=== PATIENT | female | born 1940 | race Caucasian/White ===

== ENCOUNTER → 2017-03-10 | Outpatient (CLI) | payer OTHER ==
[~2017-03-10] MED LIST: ALDACTONE25 M1 PO; AMLODIPINE BES10 MG PO; AMLODIPINE5 MG PO; ASPI-COR81 M1 PO; ASPIRIN ADULT L81 M1 PO; ASPIRIN81 M1 PO; ATARAX25 MG PO; ATIVAN0.5 MG PO; AUGMENTIN 500 M1 TAB PO; BACTRIM DS 8001 TA1 PO; CAPOTEN12.5 MG PO; CAPTOPRIL50 MG PO; CATAPRES0.2 MG PO; CIPRO500 MG PO; CITALOPRAM20 MG PO; CLINDAMYCIN HC300 MG PO; COREG6.25 MG PO; COUMADIN2.5 M1 PO; COUMADIN3 M1 PO; COUMADIN5 M2 PO; COUMADIN5 MG PO; Coumadin5 MG PO; DIABETA5 MG PO; DIFLUCAN150 MG PO; FERREX 150 FORT1 CA1 PO; FORMOTEROL FUMA INH; FUROSEMIDE40 MG PO; GABAPENTIN400 MG PO; GLIPIZIDE10 MG PO; HYDR25T PO; HYDROCODONE BIT1 T11 PO; IMDUR30 MG PO; KEFLEX500 MG PO; KEPPRA500 MG PO; KLOR-CON 1010 MEQ PO; LASIX40 MG PO; LEVEMIR10 ML SC; LEVEMIR100 U/ML SG; LEVOTHYROXIN0.125 MG PO; LISINOPRIL20 MG PO; LISINOPRIL40 MG PO; LOPRESSOR50 MG PO; Lac-Hydrin 12%340 GM T; METFORMIN1000 MG PO; METOCLOPRAMIDE5 MG PO; METOPROLOL TART50 M1 PO; MINIPRESS2 M1 PO; MYCOLOG CREAM 115 GM PO; MYCOLOG CREAM 115 GM T; MYLANTA SUPREME PO; NEURONTIN400 MG PO; NIFEREX FORTE PO; NORVASC5 MG PO; NOVOLIN R100 U/ML SC; OMEPRAZOLE20 MG PO; PLAVIX75 M1 PO; PLAVIX75 MG PO; PRAZOSIN PO; PRILOSEC20 M1 PO; PT DOESN'T KNOW MEDS; SYNTHROID,LEV125 MCG PO; VANCOMYCIN HCL N1 GM IV; VENTOLIN 02.5 MG/3 M INH; VICODIN 5/500 505 MG PO; Ventolin 02.5 MG/3 M INH; Ventolin 02.5 MG/3 M NEB; ZESTRIL20 MG PO; ZOCOR40 MG PO; Zofran4 MG PO
[2017-03-10 09:11] LABS: BASO % 0.3 % (0.0-1.0); EOS # 0.5 10*3/uL (0.0-0.4); EOS % 4.4 % (1.0-4.0); HEMATOCRIT 33.1 % (37.0-47.0); IG # 0.1 10*3/uL (0.0-0.1); LYMPH # 1.7 10*3/uL (1.3-4.4); LYMPH % 14.6 % (27.0-41.0); MEAN CELL VOLUME 87.3 fl (81.0-99.0); MEAN CORPUSCULAR HGB CONC 33.2 g/dl (33.0-37.0); MEAN PLATELET VOLUME 9.5 fl (9.6-12.3); MONO # 0.7 10*3/uL (0.1-1.0); MONO % 5.5 % (3.0-9.0); NEUT # 8.8 10*3/uL (2.3-7.9); NEUT % 74.5 % (47.0-73.0); PLATELET COUNT AUTOMATED 392 10*3/uL (130-400); RED BLOOD COUNT 3.79 10*6/uL (4.10-5.10); RED CELL DISTRI WIDTH 13.4 % (0-14.5); WHITE BLOOD COUNT 11.8 10*3/uL (4.8-10.8)
[2017-03-10 09:29] LABS: HEMOGLOBIN A1c 8.5 % (4.8-5.6)
[2017-03-10 09:43] LABS: ALBUMIN 3.3 gm/dl (3.1-4.5); BILIRUBIN, TOTAL 0.3 mg/dl (0.2-1.0); MAGNESIUM 1.3 mg/dL (1.5-2.1); PHOSPHOROUS 2.9 mg/dL (2.5-4.9); POTASSIUM 4.2 mmol/L (3.5-5.1); TOTAL PROTEIN 7.2 gm/dL (6.4-8.2); URIC ACID 6.7 mg/dL (2.6-6.0)
[2017-03-10 10:05] LABS: FERRITIN 82.7 ng/mL (10.0-291.0); PTH INTACT 75.6 pg/mL (14.0-72.0); VITAMIN D, 25-HYDROXY 18.8 ng/mL (30-100)
[2017-03-11 09:12] LABS: MICRO ALBUMIN/CRE RATIO 54.3 (0.0-30.0)
== END | disposition home or self-care (01) ==
LOC: LAB 08:42
PROVIDERS: Internal Medicine Nephrology
DX: I13.0 Hypertensive heart and chronic kidney disease with heart failure and stage 1 through stage 4 chronic kidney disease, or unspecified chronic kidney disease (principal); N18.3 Chronic kidney disease, stage 3 (moderate); I50.22 Chronic systolic (congestive) heart failure; N17.9 Acute kidney failure, unspecified; E11.29 Type 2 diabetes mellitus with other diabetic kidney complication; D63.1 Anemia in chronic kidney disease; E55.9 Vitamin D deficiency, unspecified; E11.22 Type 2 diabetes mellitus with diabetic chronic kidney disease

== ENCOUNTER → 2017-04-03 | Outpatient (CLI) | payer OTHER ==
[2017-04-03 13:02] LABS: HEMOGLOBIN 11.1 g/dl (12.0-16.0); MEAN CELL VOLUME 86.2 fl (81.0-99.0); MEAN CORPUSCULAR HGB CONC 33.6 g/dl (33.0-37.0); MEAN PLATELET VOLUME 9.8 fl (9.6-12.3); RED BLOOD COUNT 3.83 10*6/uL (4.10-5.10); RED CELL DISTRI WIDTH 13.2 % (0-14.5); WHITE BLOOD COUNT 12.3 10*3/uL (4.8-10.8)
[2017-04-03 13:22] LABS: HEMOGLOBIN A1c 8.5 % (4.8-5.6)
[2017-04-03 13:34] LABS: ALBUMIN 3.5 gm/dl (3.1-4.5); BILIRUBIN, TOTAL 0.4 mg/dl (0.2-1.0); FREE T4 1.39 ng/dl (0.76-1.46); POTASSIUM 4.3 mmol/L (3.5-5.1); TOTAL PROTEIN 7.6 gm/dL (6.4-8.2)
[2017-04-03 13:39] LABS: THYROID STIM HORMONE (HS) 0.342 uIU/ml (0.358-4.75); VITAMIN D, 25-HYDROXY 23.6 ng/mL (30-100)
== END | disposition home or self-care (01) ==
LOC: LAB 12:16
PROVIDERS: Family Medicine
DX: I25.10 Atherosclerotic heart disease of native coronary artery without angina pectoris (principal); E11.9 Type 2 diabetes mellitus without complications; E03.9 Hypothyroidism, unspecified; E55.9 Vitamin D deficiency, unspecified; I63.9 Cerebral infarction, unspecified

== ENCOUNTER → 2017-05-11 | Outpatient (CLI) | payer OTHER ==
[2017-05-11 12:27] LABS: ALBUMIN 3.4 gm/dl (3.1-4.5); PHOSPHOROUS 2.7 mg/dL (2.5-4.9); POTASSIUM 4.6 mmol/L (3.5-5.1)
== END | disposition home or self-care (01) ==
LOC: LAB 11:45
PROVIDERS: Family Medicine
DX: N18.2 Chronic kidney disease, stage 2 (mild) (principal)

== ENCOUNTER → 2017-12-01 | Outpatient (CLI) | payer OTHER ==
[2017-12-01 17:03] LABS: HEMATOCRIT 33.9 % (37.0-47.0); HEMOGLOBIN 10.7 g/dl (12.0-16.0); MEAN CELL VOLUME 89.2 fl (81.0-99.0); MEAN CORPUSCULAR HGB 28.2 pg (27.0-31.0); MEAN CORPUSCULAR HGB CONC 31.6 g/dl (33.0-37.0); MEAN PLATELET VOLUME 10.1 fl (9.6-12.3); RED BLOOD COUNT 3.8 10*6/uL (4.10-5.10); RED CELL DISTRI WIDTH 13.7 % (0-14.5); WHITE BLOOD COUNT 10.7 10*3/uL (4.8-10.8)
[2017-12-01 17:17] LABS: ALBUMIN 3.4 gm/dl (3.1-4.5); CREATININE 1.57 mg/dL (0.55-1.02); TOTAL PROTEIN 7.3 gm/dL (6.4-8.2)
== END | disposition home or self-care (01) ==
LOC: LAB 16:13
PROVIDERS: Family Medicine
DX: E78.00 Pure hypercholesterolemia, unspecified (principal); I10 Essential (primary) hypertension; E55.9 Vitamin D deficiency, unspecified; F41.1 Generalized anxiety disorder; E74.09 Other glycogen storage disease

== ENCOUNTER 2017-12-07 11:38 | Inpatient (IN) | payer OTHER ==
[~2017-12-07] VITALS: Ht 160 cm; Wt 72.6 kg
--- NOTE | ~2017-12-07 | EKG ---
[place], [place] ELECTROCARDIOGRAM REPORT NAME: ALON SWIFT UNIT #: [id number] ROOM: 412 DOCTOR: MARK BUCKNER MD,DIANA BIRTHDATE: [birth year] DOS: 12/07/2017 ELECTROCARDIOGRAM REPORT FINDINGS: Atrial paced rhythm noted with heart rate of 61 beats per minute. No further assessment could be done because of the paced rhythm. DIANA FLORES MD CM:EKGRPT:ELECTROCARDIOGRAM REPORT [id number] DIANA BUCKNER MD
--- NOTE | ~2017-12-07 | CON ---
[place], [place] RE[facility] OF CONSULTATION [id number] UN[facility] #: [id number] ROOM: 412 DOCTOR: MARK BUCKNER MDDIANA BIRTHDATE: [birth year] DOS: 12/08/2017 PULMONARY CONSULTATION, EVALUATION AND MANAGEMENT CONSULTATION REQUESTED BY: Dr. Kinsey Cabezas. REASON FOR CONSULTATION: For assessment of COPD. HISTORY OF PRESENT ILLNESS: A 77-year-old white female patient with past known history to me with history of bronchial asthma, but has not been seen in the office for years. She is usually seen by Dr. Harry. Came into the hospital as the patient complains of mild symptoms of shortness of breath. She was also noted with symptoms of fatigue and tiredness with that. There were symptoms of chest pain. Denies symptoms of coughing or hemoptysis. The patient came into the Emergency Room. She has been noted with elevation of potassium. She had been in the hospital for further care. This morning as the patient was seen, she was sitting comfortably on the chair, stated that she has been getting home discharged. Shortness of breath seemed to be improving. There were no symptoms of hemoptysis or chest pain. REVIEW OF SYSTEMS: CONSTITUTIONAL: Fatigue and tiredness noted without symptoms of fever or chills. EYES: Denies burning, redness, or tenderness. EARS, NOSE, THROAT SYMPTOMS: Denies sore throat, hoarseness, otalgia, postnasal drainage or epistaxis. CARDIOVASCULAR SYSTEM: Denies angina pain, edema, pain of lower extremity. GASTROINTESTINAL SYMPTOMS: No dysphagia, nausea, vomiting, diarrhea, abdominal pain, hematemesis, melena, dysphagia, abnormal weight loss. GENITOURINARY: No dysuria, suprapubic pain, hematuria. SKIN: Denies any ulcer. The patient noted with some lesions on the skin, which has been recently started treatment for possibility of infection with Bactrim sulfate. MUSCULOSKELETAL: No acute joint pain, redness, or tenderness. CENTRAL NERVOUS SYSTEM: Past history of CVA was noted with some residual hemiparesis was also noted on the left side. No dizziness, headache, diplopia, syncopal episodes. Remaining systems were reviewed. They were noted all negative. PAST MEDICAL HISTORY: 1. Atrial fibrillation. 2. Essential hypertension. 3. Type 2 diabetes mellitus. 4. Hypothyroidism. 5. Past CVA with the partial residual hemiparesis. 6. History of uncomplicated bronchial asthma, which has been known previously in my office. SOCIAL HISTORY: The patient lives at home. She was noted nonsmoker lifetime. [place], [place] REPORT OF CONSULTATION NAME: ALON SWIFT UNIT #: [id number] ROOM: 412 DOCTOR: DIANA BUSH MD BIRTHDATE: [birth year] Denies history of alcohol use, illicit drug use. She is and has 4 children. She denies any history of occupation-related pulmonary exposure. FAMILY HISTORY: The patient's father at age of 8080 years old, complication of brain cancer. Mother at the age of 75 years, complication of COPD. PAST SURGICAL HISTORY: 1. Cholecystectomy. 2. Complete hysterectomy. 3. Cardiac catheterization. 4. AICD insertion in 07/2013. HOME MEDICATIONS: Noted as Coreg, Norvasc, citalopram, diclofenac, levothyroxine, Tradjenta, omeprazole, Xarelto, Basaglar insulin, lisinopril, Bactrim sulfate. DRUG ALLERGY HISTORY: Noted as no known drug allergies. PHYSICAL EXAMINATION: GENERAL: A 77 white female currently noted awake and alert without any distress, sitting on the chair. Height of the patient recorded 5 feet 3 inches, weight of 156 pounds, BMI 27. VITAL SIGNS: Shows normal temperature, respiratory rate 18-24, heart rate of 78-81, blood pressure 127/54-152/58. Pulse oxygen saturation was noted as 97% on room air. HEENT: Shows head was atraumatic. Eyes nonicterus. NECK: Supple. Oral mucosa moist. CARDIOVASCULAR: S1, S2 audible. LUNGS: The patient was noted without any wheezing or crackles. Breaths are noted mild to moderately decreased bilaterally. ABDOMEN: Soft, nontender with mild obesity. EXTREMITIES: The patient noted without any acute edema. VISIBLE SKIN: No lesions or rashes. MUSCULOSKELETAL SYMPTOMS: The patient without any acute deformities. CENTRAL NERVOUS SYSTEM: Mild residual left hemiparesis. LABORATORY DATA: CBC of 12/02/2017 noted hemoglobin 10.7, normal WBC and platelet count. CMP of the patient on 12/01/2017; BUN 40, creatinine 1.57, potassium was normal. The PT, PTT of the patient that was done yesterday on admission was noted normal. CBC of the patient on 08/06/2017; hemoglobin 11.4, hematocrit 34.8, platelet count was normal. The BMP of patient of 12/07/2017; BUN 31, creatinine 1.47, potassium 5.7, chloride 109. Chest x-ray 2-view shows changes of hyperinflation without any acute pulmonary infiltration. BMP this morning; BUN 37, creatinine 1.64, potassium was noted normal 4.6. IMPRESSION: 1. The patient who has been currently admitted to the hospital was noted with hyperkalemia, most likely related to the use of the Bactrim sulfate or lisinopril with a history of chronic kidney disease, very likely. 2. Skin rash, etiology unclear. [place], [place] REPORT OF CONSULTATION NAME: ALON SWIFT UNIT #: [id number] ROOM: [facility] DOCTOR: MARK BUCKNER MD,DIANA BIRTHDATE: [birth year] 3. Current finding of bronchial asthma was also noted, untreated with minimal shortness of breath. 4. History of past cerebrovascular accident. PLAN OF MANAGEMENT: The patient recommended outpatient assessment for further pulmonary assessment if she would be interested. She could benefit from use of the long-term medication for the bronchial asthma as well. Other supportive therapy, plan of management will be continued previously as well. Usual treatment, all other supportive care as in progress. Continue assess and manage the patient's kidney functions. Discharge the patient home with the patient cleared out by other consultants. DIANA FLORES MD CM:CONSTR:REPORT OF CONSULTATION 1312 12/09/17 0002 interface
--- NOTE | ~2017-12-07 | CON ---
[place], [place] REPORT OF CONSULTATION NAME: ALON SWIFT UNIT #: [id number] ROOM: 412 DOCTOR: BETO LORA MD BIRTHDATE: [birth year] DOS: 12/07/2017 HISTORY OF PRESENT ILLNESS: This is a 77-year-old -[place]ian woman with a history of heart block, a pacemaker, who has never had any heart failure that I know of, no known coronary artery disease. She apparently had intracranial hemorrhage in 2013. Has generalized weakness. Has had UTIs. She has never had a heart attack, heart failure or COPD. She has never smoked cigarettes, does not use alcoholic beverages. She had gone to see her primary care doctor, Dr. Harry and had complained of shortness of breath and weakness and she was referred to the ER from where she was admitted. The patient tells me that she has been short of breath for the last 6 months. There is nothing new about her shortness of breath. She has not had any orthopnea, swelling of the lower extremities, palpitation, or dizziness. There had not been any cough, fever or chills. No sore throat or sniffles. She has itchy body and scratches a lot, as a result, she has extensive scabs on the lower limbs, on the face with the chin having mild cellulitis now. HOME MEDICATIONS: Include amlodipine 5 mg daily, carvedilol 6.25 b.i.d., Xarelto 15 mg daily, omeprazole 20 mg daily, Tradjenta 5 mg daily, levothyroxine 125 mcg daily, Voltaren 50 mg q. 12h. and Citalopram 20 mg daily. PHYSICAL EXAMINATION: GENERAL: This is a patient who has cellulitis on the chin and has several small scabs on the face from scratching as well on the lower limbs. VITAL SIGNS: Temperature is normal, pulse is 76 and regular, blood pressure 136/54. NECK: Normal JVP. AJR is negative. There is no carotid bruit. HEART: There is no cardiomegaly, no murmurs are present. EXTREMITIES: She has good pedal pulses and very minimal edema of the lower extremities. RESPIRATORY: Lungs are clear to auscultation with fairly good breath sounds. ABDOMEN: Supple. DIAGNOSTIC STUDIES: Chest x-ray showed no abnormality. An ECG showed atrial pacing at 81 beats per minute and no pacing activities in the ventricle seen; however, there are deeply inverted and symmetrical T waves in V2-V6 and inferior leads. Similar findings were noted in 2013. IMPRESSION: This patient has shortness of breath, but it is not due to cardiac decompensation. There is no clinical or radiographic evidence of heart failure. Therefore, I do not recommend any use of diuretics. She may be short of breath because of deconditioning because of increase in activity. Pacemaker is functioning fine. [place], [place] REPORT OF CONSULTATION NAME: ALON SWIFT UNIT #: [id number] ROOM: 412 DOCTOR: BETO LORA MD BIRTHDATE: [birth year] BETO LORA MD CM:CONSTR:REPORT OF CONSULTATION 1701 12/07/17 2154 interface
--- NOTE | ~2017-12-07 | PR ---
[place], [place] PROGRESS NOTE NAME: ALON SWIFT UNIT #: [id number] ROOM: 412 DOCTOR: WILFREDO ROQUE MD BIRTHDATE: [birth year] DOS: 12/08/[address] Lundberg. SUBJECTIVE: The patient was seen by Dr. Lundberg yesterday. The patient is comfortably sleeping, hemodynamically stable. Pacemaker is functioning normally. OBJECTIVE: VITAL SIGNS: Blood pressure is stable. The patient is positive for 210 mL. NECK: Supple. No JVD. LUNGS: Diminished air entry. HEART: Sounds are regular. ABDOMEN: Soft, nontender. NEUROLOGIC: Stable. LABORATORY DATA: Hemoglobin 11.1, hematocrit 34.8. Electrolytes are normal. Creatinine is 1.4. IMPRESSION: The patient with significant shortness of breath, hypertension, hypothyroidism, diabetes mellitus, permanent pacemaker, atrial fibrillation. RECOMMENDATION: Continue the present medications. Get an echo if it is not done in 6 months. Continue the anticoagulation and beta blockers and I will follow up. WILFREDO ROQUE MD CM:PNTRANS [id number] WILFREDO ROQUE MD 12/08/17 0802 interface
--- NOTE | ~2017-12-07 | WRIGHTHP ---
[place], [place] PATIENT HISTORY AND PHYSICAL EXAM NAME: ALON SWIFT [facility] #: [id number] UNIT #: [id number] ROOM: 412 DOCTOR: MEGAN LAI MD BIRTHDATE: [birth year] DOS: 12/08/2017 HISTORY OF PRESENT ILLNESS: The patient is 77 years old. The patient was at Dr. Lundberg's office yesterday morning, had a pacemaker check done and this was absolutely fine. The patient then had an appointment with Dr. Harry's office where she was seen. The patient stated that she was a little short of breath and the patient was told to go to the Emergency Room because her doctor felt that there might be something wrong with the heart, so she came to the Emergency Room, had an evaluation. Her chest x-ray was normal. The only abnormal finding was that her potassium was high. This could have been from the combination of Bactrim and lisinopril that she is on, but the patient was admitted. She denies having any complaints of chest pains, palpitations, does not have any fever or chills, does not have any abdominal pain, nausea, and emesis. The patient is sitting up in her chair, eating her breakfast this morning. The patient is not having any complaints of chest pains, palpitations or shortness of breath. She has multiple lesions all over her body. She has a tendency to scratch them and get them infected and she has been on Bactrim for that. PAST MEDICAL HISTORY: Significant for; 1. History of pacemaker placement. 2. History of cerebrovascular accident with left-sided hemiparesis. 3. History of paroxysmal AFib, benign hypertension, type 2 diabetes mellitus, insulin-dependent, hypothyroidism. MEDICATIONS: She is currently on are carvedilol 6.25 b.i.d., amlodipine 5 daily, citalopram 40 daily, diclofenac 50 b.i.d., levothyroxine 0.125 daily, Tradjenta 5 mg daily, omeprazole 20 daily, Xarelto 15 daily, Basaglar 32 units at 1800 and lisinopril 40 daily. SOCIAL HISTORY: Nonsmoker, does not use any alcohol. She lives at home with her daughter. PHYSICAL EXAMINATION: GENERAL: She is awake and alert and oriented, very pleasant, in no distress. VITAL SIGNS: Blood pressure is 115/57, pulse of 80, respirations 18, temperature 97.9. LUNGS: Diminished breath sounds. No wheezes, rales, rhonchi heard. HEART: Regular. ABDOMEN: Obese, soft. EXTREMITIES: Without any edema. Multiple small abrasions all over her body from her constantly scratching it. ASSESSMENT AND PLAN: 1. Hypokalemia pulse likely from a combination of multifactorial from medications, most likely lisinopril as well as the Bactrim, both being discontinued. She can take topical preparations for her wounds. 2. Type 2 diabetes mellitus, insulin-dependent, fairly controlled. 3. Chronic kidney disease stage 3B. The patient to continue to avoid nephrotoxic medications. 4. Shortness of breath, ruled out for myocardial infarction. Chest x-ray [place], [place] PATIENT HISTORY AND PHYSICAL EXAM NAME: ALON SWIFT UNIT #: [id number] ROOM: [facility] DOCTOR: MEGAN LAI MD BIRTHDATE: [birth year] showed no evidence of congestive heart failure. The patient appears to have hyperinflation of the lung truong and may have underlying chronic obstructive pulmonary disease and may require further workup as an outpatient including a pulmonary function test. This patient is stable. The plan is to discharge her to home today. MEGAN LAI MD CM:HISPHYS:PATIENT HISTORY AND PHYSICAL EXAMINATION 0835 MEGAN LAI MD 12/08/17 0923 interface
[2017-12-07 11:41] VITALS: BP 135/72
[2017-12-07 11:59] LABS: BASO % 0.3 % (0.0-1.0); EOS # 0.6 10*3/uL (0.0-0.4); EOS % 5.2 % (1.0-4.0); HEMATOCRIT 34.8 % (37.0-47.0); HEMOGLOBIN 11.1 g/dl (12.0-16.0); LYMPH # 1.9 10*3/uL (1.3-4.4); LYMPH % 16.4 % (27.0-41.0); MEAN CELL VOLUME 88.5 fl (81.0-99.0); MEAN CORPUSCULAR HGB 28.2 pg (27.0-31.0); MEAN CORPUSCULAR HGB CONC 31.9 g/dl (33.0-37.0); MEAN PLATELET VOLUME 9.4 fl (9.6-12.3); MONO # 0.8 10*3/uL (0.1-1.0); MONO % 6.3 % (3.0-9.0); NEUT # 8.4 10*3/uL (2.3-7.9); NEUT % 71.2 % (47.0-73.0); PLATELET COUNT AUTOMATED 358 10*3/uL (130-400); RED BLOOD COUNT 3.93 10*6/uL (4.10-5.10); RED CELL DISTRI WIDTH 13.7 % (0-14.5); WHITE BLOOD COUNT 11.9 10*3/uL (4.8-10.8)
[2017-12-07 12:07] LABS: ACT PARTIAL THROMBO TIME 27.2 SECONDS (20.8-31.5); INTERNATIONAL NORM RATIO 1.1 (2.0-3.5)
[2017-12-07 12:11] LABS: CREATININE 1.47 mg/dL (0.55-1.02); POTASSIUM 5.7 mmol/L (3.5-5.1)
[2017-12-07] MEDS ORDERED: XARE15TA PO (13:39)
[2017-12-07] MEDS ORDERED: BASAGLAR SQ (13:39)
[2017-12-07] MEDS ORDERED: VOLTAREN50 M1 PO (13:40)
[2017-12-07] MEDS ORDERED: COREG6.25 MG PO (13:40)
[2017-12-07] MEDS ORDERED: PRILOSEC20 M1 PO (13:41)
[2017-12-07] MEDS ORDERED: HYDR25T PO (13:41)
[2017-12-07] MEDS ORDERED: TRAD5TAB1 PO (13:42)
[2017-12-07 14:04] VITALS: BP 156/64
[2017-12-07 16:00] VITALS: BP 136/54
[2017-12-07 20:00] VITALS: BP 151/68; BP 152/58
[2017-12-08] VITALS: BP 115/57
[2017-12-08 07:42] LABS: CREATININE 1.64 mg/dL (0.55-1.02); POTASSIUM 4.6 mmol/L (3.5-5.1)
[2017-12-08 08:00] VITALS: BP 127/54
[2017-12-08 12:00] VITALS: BP 126/59
== END 2017-12-08 15:59 | disposition home or self-care (01) | DRG 641 ==
LOC: ED 11:38 → 4E 12:35 → EDHOLD 12:35 → 4E 12:43
PROVIDERS: Emergency Medicine; Internal Medicine
DX: E87.5 Hyperkalemia (principal); E11.22 Type 2 diabetes mellitus with diabetic chronic kidney disease; I48.0 Paroxysmal atrial fibrillation; I69.354 Hemiplegia and hemiparesis following cerebral infarction affecting left non-dominant side; E03.9 Hypothyroidism, unspecified; N18.3 Chronic kidney disease, stage 3 (moderate); J45.909 Unspecified asthma, uncomplicated; R21 Rash and other nonspecific skin eruption; I12.9 Hypertensive chronic kidney disease with stage 1 through stage 4 chronic kidney disease, or unspecified chronic kidney disease; T37.0X5A Adverse effect of sulfonamides, initial encounter; T46.4X5A Adverse effect of angiotensin-converting-enzyme inhibitors, initial encounter; Z79.4 Long term (current) use of insulin; Z79.899 Other long term (current) drug therapy; Z91.030 Bee allergy status; Z79.84 Long term (current) use of oral hypoglycemic drugs; Z87.440 Personal history of urinary (tract) infections; Z90.710 Acquired absence of both cervix and uterus; Z95.5 Presence of coronary angioplasty implant and graft; Z90.49 Acquired absence of other specified parts of digestive tract; Z95.810 Presence of automatic (implantable) cardiac defibrillator; Z80.8 Family history of malignant neoplasm of other organs or systems

== ENCOUNTER → 2018-03-08 | Outpatient (CLI) | payer OTHER ==
[~2018-03-08] MED LIST changes: +BASAGLAR SQ; +TRAD5TAB1 PO; +VOLTAREN50 M1 PO; +XARE15TA PO
[2018-03-08 16:26] LABS: BASO % 0.3 % (0.0-1.0); EOS # 0.4 10*3/uL (0.0-0.4); EOS % 3.3 % (1.0-4.0); HEMATOCRIT 32.9 % (37.0-47.0); HEMOGLOBIN 10.5 g/dl (12.0-16.0); LYMPH % 17.2 % (27.0-41.0); MEAN CELL VOLUME 86.4 fl (81.0-99.0); MEAN CORPUSCULAR HGB 27.6 pg (27.0-31.0); MEAN CORPUSCULAR HGB CONC 31.9 g/dl (33.0-37.0); MEAN PLATELET VOLUME 9.7 fl (9.6-12.3); MONO # 0.7 10*3/uL (0.1-1.0); MONO % 6.2 % (3.0-9.0); NEUT # 8.2 10*3/uL (2.3-7.9); NEUT % 72.2 % (47.0-73.0); PLATELET COUNT AUTOMATED 371 10*3/uL (130-400); RED BLOOD COUNT 3.81 10*6/uL (4.10-5.10); RED CELL DISTRI WIDTH 14.1 % (0-14.5); WHITE BLOOD COUNT 11.4 10*3/uL (4.8-10.8)
[2018-03-08 16:42] LABS: ALBUMIN 3.5 gm/dl (3.1-4.5); CREATININE 1.37 mg/dL (0.55-1.02); PHOSPHOROUS 3.3 mg/dL (2.5-4.9); POTASSIUM 4.4 mmol/L (3.5-5.1); TOTAL PROTEIN 7.6 gm/dL (6.4-8.2); URIC ACID 5.7 mg/dL (2.6-6.0)
[2018-03-08 17:12] LABS: VITAMIN D, 25-HYDROXY 20.6 ng/mL (30-100)
[2018-03-08 17:13] LABS: FERRITIN 27.1 ng/mL (10.0-291.0)
[2018-03-09 10:04] LABS: CREATININE,URINE 52.5 mg/dL (Not Estab.); MICRO ALBUMIN/CRE RATIO 35.8 (0.0-30.0)
== END | disposition home or self-care (01) ==
LOC: LAB 16:02
PROVIDERS: Internal Medicine Nephrology
DX: I13.0 Hypertensive heart and chronic kidney disease with heart failure and stage 1 through stage 4 chronic kidney disease, or unspecified chronic kidney disease (principal); E11.22 Type 2 diabetes mellitus with diabetic chronic kidney disease; N18.3 Chronic kidney disease, stage 3 (moderate); I50.22 Chronic systolic (congestive) heart failure; E55.9 Vitamin D deficiency, unspecified; N17.9 Acute kidney failure, unspecified; D63.1 Anemia in chronic kidney disease

== ENCOUNTER → 2018-04-30 | Outpatient (CLI) | payer OTHER ==
[2018-04-30 10:37] LABS: CHOLESTEROL 113 mg/dL (<200); CPK 33 U/L (26-192); HDL CHOLESTEROL 36 mg/dl (40-60); LDL CHOLESTEROL 62 mg/dL (9-159); TRIGLYCERIDES 75 mg/dl (<150); VLDL CHOLESTEROL 15 mg/dL (6-40)
== END | disposition home or self-care (01) ==
LOC: LAB 09:50
PROVIDERS: Family Medicine
DX: I10 Essential (primary) hypertension (principal); E11.9 Type 2 diabetes mellitus without complications; E78.00 Pure hypercholesterolemia, unspecified

== ENCOUNTER 2019-06-28 08:14 | Inpatient (IN) | payer MEDICARE ==
[~2019-06-28] VITALS: Ht 160 cm; Wt 66.9 kg
[2019-06-28] VITALS (7 sets, daily range): BP systolic 128–194; BP diastolic 62–112
[2019-06-28 09:25] LABS: BASO % 0.4 % (0.0-1.0); EOS # 0.4 10*3/uL (0.0-0.4); EOS % 3.5 % (1.0-4.0); HEMATOCRIT 37.4 % (37.0-47.0); HEMOGLOBIN 12.9 g/dl (12.0-16.0); LYMPH # 2.4 10*3/uL (1.3-4.4); MEAN CELL VOLUME 85.4 fl (81.0-99.0); MEAN CORPUSCULAR HGB 29.5 pg (27.0-31.0); MEAN CORPUSCULAR HGB CONC 34.5 g/dl (33.0-37.0); MEAN PLATELET VOLUME 10.4 fl (9.6-12.3); MONO # 0.6 10*3/uL (0.1-1.0); NEUT # 7.3 10*3/uL (2.3-7.9); NEUT % 67.6 % (47.0-73.0); PLATELET COUNT AUTOMATED 331 10*3/uL (130-400); RED BLOOD COUNT 4.38 10*6/uL (4.10-5.10); RED CELL DISTRI WIDTH 13.5 % (0-14.5); WHITE BLOOD COUNT 10.7 10*3/uL (4.8-10.8)
--- NOTE | 2019-06-28 09:35 | NUR ---
PT HAS STOPPED TAKING ALL HER HOME MEDS PER DAUGHTER. DAUGHTER STATES THAT THE PT HAS "PEOPLE IN HER HEAD" THAT TOLD HER SHE DIDN'T NEED THEM ANY LONGER. PT ONLY TAKES METFORMIN WHEN DAUGHTER IS ABLE TO GIVE HER HERS. LIST OF HOME MEDS WAS GIVEN AND SHOWN TO DR. CHOU
[2019-06-28 09:42] LABS: ALBUMIN 3.4 gm/dl (3.1-4.5); ALKALINE PHOSPHATASE 149 U/L (45-117); BUN 18 mg/dl (7-24); CHLORIDE 101 mmol/L (98-107); CREATININE 1.23 mg/dL (0.55-1.02); POTASSIUM 4.4 mmol/L (3.5-5.1); SGOT/AST 4 IU/L (3-35); SGPT/ALT 15 U/L (12-78); SODIUM 135 mmol/L (136-145); TOTAL PROTEIN 7.2 gm/dL (6.4-8.2)
[2019-06-28 09:45] LABS: TROPONIN I < 0.015 ng/ml (<0.045)
[2019-06-28 10:02] LABS: BILIRUBIN NEGATIVE (NEGATIVE); BLOOD TRACE-LYSED (NEGATIVE); CLARITY SL CLOUDY (CLEAR); COLOR YELLOW (YELLOW); GLUCOSE 3+ (NEGATIVE); KETONE NEGATIVE (NEGATIVE); LEUKO ESTERASE NEGATIVE (NEGATIVE); NITRITE NEGATIVE (NEGATIVE); PH 5.5 (5.0-9.0); SPECIFIC GRAVITY 1.015 (1.005-1.030); UROBILINOGEN 0.2 E.U./dl (0.2-1.0)
[2019-06-28 10:15] LABS: BACTERIA 1+; WBC 16-20 wbc/hpf (0-5)
--- NOTE | 2019-06-28 12:30 | NUR ---
A 79, admitted to , under the services of MEGAN Pedersen MD with a diagnosis of DM, CHEST PAIN. Chief complaint is ELEVATED GLUCOSE PER DAUGHTER. Patient arrived via stretcher from ER. Monitor applied. Initial assessment completed. Vital signs taken and recorded. MEGAN PEDERSEN MD notified of admission to the unit. Orders received. See assessment for past medical history, medications and allergies. Patient and/or family oriented to unit. [facility] visitation policy reviewed. Clothing/patient valuable form completed. [facility]
--- NOTE | 2019-06-28 13:37 | NUR ---
NO STAGING NOTED TO ER WOUND SCREEN. I CALLED AND SPOKE TO ALFREDA GUAJARDO AND SHE STATED THE ER DOC STAGED THEM #1 AND #3 STAGED 3 AND #2 STAGED A STAGE 4. WOUND SCREEN UPDATED.
[2019-06-28] MEDS ORDERED: CARVEDILOL6.25 MG PO (13:43)
[2019-06-28] MEDS ORDERED: KEPPRA500 MG PO (13:43)
[2019-06-28] MEDS ORDERED: NORVASC10 MG PO (13:44)
[2019-06-28] MEDS ORDERED: Zestril,Prinivi40 MG PO (13:44)
[2019-06-28] MEDS ORDERED: ATIVAN1 MG PO (13:45)
[2019-06-28] MEDS ORDERED: GLUCOPHAGE1000 MG PO (13:45)
[2019-06-28] MEDS ORDERED: HYDROCHLOROTHIA50 M1 PO (13:46)
[2019-06-28] MEDS ORDERED: VITAMIN D32000 UNI1 PO (13:47)
--- NOTE | 2019-06-28 13:48 | NUR ---
PT'S DAUGHTER HA BROUGHT IN CURRENT MED LIST FOR PT BUT STATES "SHE HASNT BEEN TAKING ANY OF THEM". PER MEDICATION CLAIM LIST MOST HAVE NOT BEEN FILLED SINCE JANUARY. MED REC UPDATED PER DAUGHTERS LIST OF CURRENT PRESCRIBED MEDS.
--- NOTE | 2019-06-28 14:05 | NUR ---
[facility] NOTIFIED OF NEW CONSULT.
--- NOTE | 2019-06-28 14:07 | NUR ---
DR LAI IN TO SEE PT AND MADE AWARE THAT PT HAS WOUNDS TO HER FEET. STATED SHE WILL LOOK AT THEM.
--- NOTE | 2019-06-28 14:16 | NUR ---
PT HALLUCINATING STATING PEOPLE TELL HER NOT TO TAKE HER PILLS AT HOME.
[2019-06-28] MEDS ORDERED: COREG3.125 MG PO (14:18)
--- NOTE | 2019-06-28 19:30 | NUR ---
24 HOUR CHART CHECK COMPLETED AT THIS TIME.
--- NOTE | 2019-06-28 19:38 | NUR ---
24 HR chart check completed.
--- NOTE | 2019-06-28 21:00 | NUR ---
DR. LAI NOTIFED OF PATIENT BGL OF 559. ORDERS RECEIVED AT THIS TIME, SEE EMAR.
[2019-06-29] VITALS: BP 126/74
--- NOTE | 2019-06-29 00:45 | NUR ---
PATIENT AMBULATED TO BATHROOM WITH WALKER WITHOUT INCIDENT. ASSISTED BACK TO BED, CALL LIGHT WITHIN REACH, REINFORCED TO CALL AND WAIT FOR STAFF, BED ALARM ON AND FUNCTIONING. WILL CONTINUE TO MONITOR.
--- NOTE | 2019-06-29 04:10 | NUR ---
RESTING IN BED IN A POSITION OF COMFORT, RESPIRATIONS EASY AND NON-LABORED AT THIS TIME. PATIENT NOT AWAKENED PER [facility] POLICY. CALL LIGHT WITHIN REACH. WILL CONTINUE TO MONITOR.
--- NOTE | 2019-06-29 05:30 | NUR ---
BGL 70 AT THIS TIME, PATIENT GIVEN SNACK OF LAKESHIA CRACKER, PEANUT BUTTER, AND MILK AT HER REQUEST, PATIENT ASYMPTOMATIC AT THIS TIME. CALL LIGHT WITHIN REACH. WILL CONTINUE TO MONITOR.
[2019-06-29 06:32] LABS: CREATININE 1.27 mg/dL (0.55-1.02); POTASSIUM 4.4 mmol/L (3.5-5.1)
--- NOTE | 2019-06-29 06:43 | NUR ---
PATIENT HAS CONTINUED TO REFUSED TO ALLOW THIS RN TO ATTACH IV FLUIDS AND COMPLETE THEM, STATED "I DON'T NEED THAT STUFF AND I'M NOT GOING TO TAKE THEM"
[2019-06-29 07:06] LABS: BASO # 0.1 10*3/uL (0.0-0.1); BASO % 0.4 % (0.0-1.0); EOS # 0.5 10*3/uL (0.0-0.4); EOS % 3.7 % (1.0-4.0); HEMATOCRIT 40.8 % (37.0-47.0); HEMOGLOBIN 13.5 g/dl (12.0-16.0); LYMPH # 2.6 10*3/uL (1.3-4.4); MEAN CORPUSCULAR HGB 29.7 pg (27.0-31.0); MEAN CORPUSCULAR HGB CONC 33.1 g/dl (33.0-37.0); MEAN PLATELET VOLUME 10.8 fl (9.6-12.3); MONO # 0.8 10*3/uL (0.1-1.0); MONO % 6.3 % (3.0-9.0); NEUT # 8.4 10*3/uL (2.3-7.9); PLATELET COUNT AUTOMATED 390 10*3/uL (130-400); RED BLOOD COUNT 4.54 10*6/uL (4.10-5.10); RED CELL DISTRI WIDTH 13.7 % (0-14.5); WHITE BLOOD COUNT 12.4 10*3/uL (4.8-10.8)
[2019-06-29 07:08] LABS: MEAN CELL VOLUME 89.9 fl (81.0-99.0)
[2019-06-29 08:00] VITALS: BP 153/84
--- NOTE | 2019-06-29 08:58 | NUR ---
REFUSES TO TAKE MED'S. STATES THAT SHE IS NOT PRESCRIBED THESE MED'S.
--- NOTE | 2019-06-29 09:00 | NUR ---
Application Development Specialist in to talk to patient. Patient states lives at home with her daughter. There are 0 steps in the home. Physician: Dr. Harry and Dr. Lundberg [facility] health services: has had in the past but not currently Patient's level of ADLs: MINIMAL ASSIST Patient has working utilities: yes DME: cane, walker, nebulizer Follow-up physician's appointment after d/c: she prefers to make her own follow up appt after discharge Does patient want to access PORTAL?: no Discharge plan discussed with patient. She lives at home with her daughter. She is independent in her ADLs and ambulates with a cane outside of her home and a walker inside her home. Discussed home health care services and she denies any home needs at this time. Discussed short term SNF and she refuses. When medically stable she will be discharged to home. Her daughter will transport on discharge. MARCUS BENSON
--- NOTE | 2019-06-29 11:21 | NUR ---
ALON SWIFT [id number] Please refer to the physician's history and physical for past medical history, comorbid conditions, and allergies. Diagnosis: DIABETES MELLITUS OUT OF CONTROL, CHEST PAIN Damian Score: 16,AT RISK WOUND DESCRIPTIONS: Wound Number: 1 Location of the wound: left 5th toe Thickness: Partial Size: 2.5cm x 2.5cm x <0.1cm Tunneling: none Undermining: none Sinus Tract: none Presence of Exudate: none Amount: None Color: Red Odor: None Periwound Skin Appearance: Dry, flaky Wound edges: closed Pain (associated with wound): denied at time of assessment How does patient state this happened? patient unsure how this happened. If wound is on legs/feet or hands, capillary refill time, pulses, color temp, sensation: cap refill < 3 seconds. pedal pulse palpable. Wound Number: 2 Location of the wound: top of left foot Thickness: Partial Size: 4cm x 7cm x <0.1cm Tunneling: none Undermining: none Sinus Tract: none Presence of Exudate: none Amount: None Color: Red Odor: None Periwound Skin Appearance: dry, flaky Wound edges: closed Pain (associated with wound): denied at time of assessment How does patient state this happened? patient unsure how this happened. If wound is on legs/feet or hands, capillary refill time, pulses, color temp, sensation: cap refill < 3 seconds. pedal pulse palpable. Wound #3 area between 3rd and 4th toe right, wound #4 left ankle dry flaky skin noted. No drainage noted at time of assessment. Patient denied pain at time of assessment. Surface the patient is resting on: Isoflex SKIN PREVENTION RECOMMENDATION: 1. Pressure redistribution support surface as appropriate 2. Elevate heels 3. Remove boots/TEDS every shift and reapply 4. Head of bed 30 degrees as tolerated 5. Assess nutrition and hydration 6. Manage moisture 7. Avoid the use of containment devices while in bed 8. Use absorptive products on surfaces limit layers of linens on bed 9. Turn and reposition every 1-2 hours in bed and every 1 hour in chair as tolerated 10. Weight shifts every 15 minutes while up in chair 11. Offloading with pillows or device to keep heels elevated off bed 12. Monitor skin at least every shift 13. Inspect under medical devices twice a day WOUND TREATMENT RECOMMENDATIONS: Continue current orders of lac-hydrin.
[2019-06-29 12:00] VITALS: BP 168/77
--- NOTE | 2019-06-29 14:02 | NUR ---
PHYSICAL THERAPY Physical therapy evaluation attempted and screen complete. Patient asked to participate in skilled PT evaluation and declined stating, "Not really, I don't like exercise." Patient requiring SBA for transfers and SBA gait with FWW with nursing present. Recommend continued mobility with nursing staff. Discharge PT orders. Thank you. Sosa Womack,PT,DPT.
[2019-06-29 16:00] VITALS: BP 184/95
--- NOTE | 2019-06-29 18:00 | NUR ---
MOVED INTO 529 VIA BED. COMBATIVE. ATTEMPTING TO GET OUT OF BED. KICKING AND DRAWING FIST BACK. TOOK BP MED'S BUT WILL NOT TAKE OTHER MED'S. VOICES THAT DR. LORA TOLD HER TO NOT TAKE THE OTHER MED'S. SHE THINKS THAT THE STAFF ARE ALIENS. SHE VOICES THAT SHE WANTS TO CALL THE CRIMINAL DEFENSE ATTORNEY TO REPORT THE STAFF. SHE ALSO STATES "IN THE AM, I'M GETTING MY MONEY AND GETTING OUT OF HERE. " ATTEMPTED TO REDIRECT AND CALM DOWN.
[2019-06-29 20:00] VITALS: BP 138/61
--- NOTE | 2019-06-29 21:30 | NUR ---
SITTING UP ON BEDSIDE. COOPERATIVE WITH MEDICATIONS & BLOOD SUGAR AT THIS TIME. PT. VOICES NO C/O AT THIS TIME OTHER THAN SHE WOULD LIKE HER HEP LOCK REMOVED. LET HER KNOW THAT IT NEEDED TO BE LEFT IN TONIGHT. CALL LIGHT WITHIN REACH.
--- NOTE | 2019-06-30 | NUR ---
LYING IN BED WITH HEAD COVERED WITH BLANKET. CALL LIGHT WITHIN REACH.
--- NOTE | 2019-06-30 00:20 | NUR ---
UP TO BATHROOM; VOICES NO C/O AT THIS TIME. CALL LIGHT WITHIN REACH.,
[2019-06-30 01:30] VITALS: BP 115/67
--- NOTE | 2019-06-30 01:30 | NUR ---
PT. STATED THAT DR. LORA WAS IN THE ROOM TO SEE HER PER PA. PA STATED THAT DR. LORA TOLD HER TO HAVE HER BLOOD SUGAR DONE AT THIS TIME. BLOOD SUGAR & VITAL SIGNS DONE AT THIS TIME. PT. COOPERATIVE. CALL LIGHT REMAINS WITHIN REACH.
--- NOTE | 2019-06-30 05:40 | NUR ---
PT. STATES THAT SHE WAS GOING TO THE WORKSHOP. PT. STATED THAT SHE SAW DR. LORA IN HER ROOM SEVERAL TIMES THROUGHOUT THE NIGHT. ALSO STATES THAT SHE SEES PEOPLE & THAT I COULD SEE THEM IF I OPENED MY EYES. STATES THAT SHE WANTS TO LEAVE & WANTS ME TO REMOVE THE HEP LOCK & THE HEART MONITOR. ATTEMPTS TO REORIENT/REDIRECT PATIENT AT THIS TIME IS FUTILE.
--- NOTE | 2019-06-30 05:56 | NUR ---
PT. SLEPT VERY LITTLE THIS SHIFT. RISPERDOL MINIMALLY EFFECTIVE.
--- NOTE | 2019-06-30 05:57 | NUR ---
BLOOD SUGAR 181; COVERAGE PER EMAR.
[2019-06-30 08:00] VITALS: BP 120/48
[2019-06-30] MEDS ORDERED: CEFUROXIME AXE250 MG PO (08:04)
[2019-06-30] MEDS ORDERED: ARICEPT5 M1 PO (08:04)
[2019-06-30] MEDS ORDERED: RISPERDAL1 M1 PO (08:04)
[2019-06-30] MEDS ORDERED: Lantus SC (08:05)
[2019-06-30 12:00] VITALS: BP 98/56
--- NOTE | 2019-06-30 15:59 | NUR ---
Discharge instructions reviewed with patient/family. Patient receptive and verbalizes understanding. Follow-up care arranged. Written instructions given to patient/family. LISSA WRIGHT
== END 2019-06-30 15:59 | disposition home or self-care (01) | DRG 637 ==
LOC: ED 08:14 → 5E 10:42 → EDHOLD 10:42 → 5E 11:22
PROVIDERS: Emergency Medicine; ADMIT Internal Medicine
DX: E11.65 Type 2 diabetes mellitus with hyperglycemia (principal); G93.41 Metabolic encephalopathy; N39.0 Urinary tract infection, site not specified; F23 Brief psychotic disorder; I13.0 Hypertensive heart and chronic kidney disease with heart failure and stage 1 through stage 4 chronic kidney disease, or unspecified chronic kidney disease; I69.354 Hemiplegia and hemiparesis following cerebral infarction affecting left non-dominant side; E11.22 Type 2 diabetes mellitus with diabetic chronic kidney disease; I50.9 Heart failure, unspecified; R62.7 Adult failure to thrive; J44.9 Chronic obstructive pulmonary disease, unspecified; B96.20 Unspecified Escherichia coli [E. coli] as the cause of diseases classified elsewhere; N18.3 Chronic kidney disease, stage 3 (moderate); Z91.030 Bee allergy status; Z91.012 Allergy to eggs; Z90.710 Acquired absence of both cervix and uterus; Z79.4 Long term (current) use of insulin; Z95.0 Presence of cardiac pacemaker; Z79.899 Other long term (current) drug therapy

== ENCOUNTER → 2019-07-15 | Outpatient (CLI) | payer MEDICARE ==
[~2019-07-15] MED LIST changes: +ARICEPT5 M1 PO; +ATIVAN1 MG PO; +CARVEDILOL6.25 MG PO; +CEFUROXIME AXE250 MG PO; +COREG3.125 MG PO; +GLUCOPHAGE1000 MG PO; +HYDROCHLOROTHIA50 M1 PO; +Lantus SC; +NORVASC10 MG PO; +RISPERDAL1 M1 PO; +VITAMIN D32000 UNI1 PO; +Zestril,Prinivi40 MG PO
[2019-07-15 11:24] LABS: HEMATOCRIT 38.6 % (37.0-47.0); HEMOGLOBIN 12.3 g/dl (12.0-16.0); MEAN CELL VOLUME 91.9 fl (81.0-99.0); MEAN CORPUSCULAR HGB 29.3 pg (27.0-31.0); MEAN CORPUSCULAR HGB CONC 31.9 g/dl (33.0-37.0); MEAN PLATELET VOLUME 9.9 fl (9.6-12.3); RED BLOOD COUNT 4.2 10*6/uL (4.10-5.10); RED CELL DISTRI WIDTH 13.4 % (0-14.5); WHITE BLOOD COUNT 10.3 10*3/uL (4.8-10.8)
[2019-07-15 11:54] LABS: POTASSIUM 3.7 mmol/L (3.5-5.1)
[2019-07-15 12:02] LABS: ALBUMIN 3.4 gm/dl (3.1-4.5); CREATININE 1.09 mg/dL (0.55-1.02); FREE T4 0.94 ng/dl (0.76-1.46); THYROID STIM HORMONE (HS) 16.4 uIU/ml (0.358-4.75); TOTAL PROTEIN 7.4 gm/dL (6.4-8.2)
== END | disposition home or self-care (01) ==
LOC: LAB 10:38
PROVIDERS: Family Medicine
DX: E11.9 Type 2 diabetes mellitus without complications (principal); I10 Essential (primary) hypertension; E55.9 Vitamin D deficiency, unspecified; E78.00 Pure hypercholesterolemia, unspecified; R41.82 Altered mental status, unspecified

== ENCOUNTER 2020-01-18 20:08 | Emergency (ER) | payer MEDICARE ==
[~2020-01-18] VITALS: Wt 67.1 kg
[~2020-01-18 20:08] MED LIST changes: +DOXYCYCLINE100 M3 PO; +ELIQUIS5 M1 PO; +GLIMEPIRIDE4 M1 PO; +METOPROLOL SUCC25 M2 PO; +OMNICEF300 MG PO
== END 2020-01-18 21:55 ==
LOC: ED 20:08
DX: I46.9 Cardiac arrest, cause unspecified (principal); E11.22 Type 2 diabetes mellitus with diabetic chronic kidney disease; I13.0 Hypertensive heart and chronic kidney disease with heart failure and stage 1 through stage 4 chronic kidney disease, or unspecified chronic kidney disease; N18.9 Chronic kidney disease, unspecified; I50.9 Heart failure, unspecified; I25.10 Atherosclerotic heart disease of native coronary artery without angina pectoris; I48.91 Unspecified atrial fibrillation; Z91.030 Bee allergy status; Z88.8 Allergy status to other drugs, medicaments and biological substances; Z79.2 Long term (current) use of antibiotics; Z79.899 Other long term (current) drug therapy; Z95.0 Presence of cardiac pacemaker; Z90.710 Acquired absence of both cervix and uterus; Z98.61 Coronary angioplasty status; Z86.73 Personal history of transient ischemic attack (TIA), and cerebral infarction without residual deficits